=== PATIENT | male | born 1950 | race Caucasian/White ===

== ENCOUNTER 2017-08-02 15:42 | Observation (INO) | payer OTHER, MEDICARE ==
[~2017-08-02] VITALS: Ht 182.9 cm; Wt 106.6 kg
--- NOTE | 2017-08-02 16:22 | ED EYE COMPLAINT ---
History of Present Illness General Chief Complaint: General Adult Stated Complaint: SENT BY FOR MRI POSSIBLE SEIZURE Source: patient Exam Limitations: no limitations Vital Signs & Intake/Output Vital Signs & Intake/Output Vital Signs Date Time Temp Pulse Resp B/P B/P Pulse O2 O2 Flow FiO2 Mean Ox Delivery Rate 08/02 1730 98.1 62 20 120/74 96 Room Air 08/02 1633 98 Room Air 08/02 1601 97.0 60 20 122/81 95 Room Air Allergies Coded Allergies: cephalexin (Severe, SEVERE AMS 08/02/17) povidone-iodine (From BETADINE) (Severe, REQUIRED SKIN GRAFTS AFTER USED DURING SURGERY 08/02/17) soap (From BETADINE) (Severe, REQUIRED SKIN GRAFTS AFTER USED DURING SURGERY ) Triage Note: PT TO TRIAGE FROM DR LEGER'S OFFICE FOR ?MRI OR CT SCAN, STATES THE DOCTOR CALLED AND ADVISED WHICH TEST SHE WANTED. PT HAS HAD "3 WEIRD BLACK OUTS IN THE LAST MONTH". STATES "IT STARTS WITH FEELING LIKE SOMEBODY STUCK AN ICE PICK IN THE TOP OF MY HEAD". STATES EPISODE LASTS 3-5 MINS. ? IF IT'S A NEW FORM OF SEIZURE POSSIBLY BROUGHT ON BY INCREASED STRESSORS. PATIENT HAS RECENTLY RELOCATED TO [place] AND DOES NOT HAVE LOCAL NEUROLOGIST. HAS HX INCLUDING CVA, BLEED R/T PLAVIX X 2 YEARS. HAS CHRONIC/CONSTANT HEAD PAIN WHICH IS USUALLY RELIEVED TO 2/10 WITH ALEVE. Triage Nurses Notes Reviewed? yes Onset: Abrupt Duration: week(s):, gone now, intermittent Timing: recent history Severity: severe HPI: Patient presents for evaluation of transient episodes of visual loss that has happened roughly 3 times over the past month. His primary care physician felt he needed an emergent MRI scan. The patient is asymptomatic at this time. He denies associated palpitations chest pain difficulty speaking or weakness. Patient's past medical history is pertinent for a prior intracranial bleed associated with Plavix use and craniotomy. (Randee [place],Sin Roger) Past History Travel History Traveled to [place] past 21 day No Medical History Any Pertinent Medical History? see below for history Neurological: CVA, MASSIVE BRAIN BLEED FROM PLAVIX SEIZURES EENT: NONE Cardiovascular: aortic aneurysm, hypertension, hyperlipidemia, ATHEROSCLEROSIS Respiratory: NONE Gastrointestinal: NONE Hepatic: NONE Renal: NONE Musculoskeletal: AV MALFORMATION R ANKLE Psychiatric: depression Endocrine: hypothyroidism Blood Disorders: NONE Cancer(s): NONE PARK INTERPRETER/Reproductive: NONE Surgical History Surgical History: CRANIOTOMY Psychosocial History What is your primary language Nepali Tobacco Use: Current Daily Use Daily Tobacco Use Amount/Type: => 5 Cigarettes daily ETOH Use: occasional use Illicit Drug Use: denies illicit drug use Family History Hx Contributory? No (Randee [place],Sin Roger) Review of Systems Review of Systems Constitutional: Reports: no symptoms. Eyes: Reports: no symptoms. Ear: Reports: no symptoms. Nose: Reports: no symptoms. Mouth: Reports: no symptoms. Throat: Reports: no symptoms. Respiratory: Reports: no symptoms. Cardiovascular: Reports: no symptoms. GI: Reports: no symptoms. Genitourinary: Reports: no symptoms. Musculoskeletal: Reports: no symptoms. Skin: Reports: no symptoms. Neurological/Psychological: Reports: see HPI. Hematologic/Endocrine: Reports: no symptoms. Immunologic/Allergic: Reports: no symptoms. All Other Systems: Reviewed and Negative (Randee NJ,Sin Roger) Physical Exam General Appearance: well developed/nourished, no apparent distress, alert, COOPERATIVE General Inspection: SEE BELOW General Inspection: SEE BELOW Physical Exam Comments: Gen.: Well-nourished, well-developed, no acute respiratory distress. Head: Normocephalic, atraumatic. Eyes: Normal inspection bilaterally, PERRLA, EOMI Ears: Normal inspection bilaterally Nose: Normal inspection Throat/mouth : Moist mucosa Neck: Supple, full range of motion, no goiter Heart: Regular rate and rhythm, no murmurs rubs or gallops Lungs: Clear to auscultation bilaterally with normal air entry Chest: Nontender Back: Normal range of motion Abdomen: Soft, nontender, nondistended, normal bowel sounds Extremities: Normal range of motion grossly, equal radial pulses, no cyanosis clubbing or edema, extremity strength normal Neurologic: Cranial nerves 2 through 12 intact, speech is clear, gait is stable Skin: warm and dry Psychiatric: Calm, cooperative, no apparent delusions or hallucinations (Randee NJ,Sin Roger) Progress Differential Diagnosis: tia'S, AMAUROSIS FUGAX, TEMPORAL ARTERITIS, MEDICATION SIDE EFFECT Plan of Care: Orders Procedure Date/time Status PROTHROMBIN TIME 08/02 1913 Complete WESTERGREN SED RATE 08/02 1913 Complete COMPREHENSIVE METABOLIC PANEL 08/02 1913 Complete CBC WITHOUT DIFFERENTIAL 08/02 1913 Complete EKG 08/02 1913 Active Laboratory Tests 08/02/171928: Anion Gap 15, Estimated GFR > 60, BUN/Creatinine Ratio 14.0, Glucose 98, Calcium 9.9, Total Bilirubin 0.3, AST 20, ALT 37, Alkaline Phosphatase 72, Total Protein 7.8, Albumin 4.8, Globulin 3.0, Albumin/Globulin Ratio 1.6, PT 11.2, INR 1.07, CBC w Diff NO MAN DIFF REQ, RBC 4.54 L, MCV 94.7 H, MCH 31.9 H, MCHC 33.7, RDW 14.8 H, MPV 8.0, Gran % 51.0, Lymphocytes % 35.1, Monocytes % 8.5, Eosinophils % 4.8, Basophils % 0.6, Absolute Granulocytes 4.7, Absolute Lymphocytes 3.3, Absolute Monocytes 0.8 H, Absolute Eosinophils 0.5, Absolute Basophils 0.1, ESR Westergren 20 H Diagnostic Imaging: Discussed w/RAD: CT Scan. Radiology Impression: PATIENT: RAMON SARABIA PRESENT AGE: 67 PATIENT ACCOUNT NO: [id number] : 51 LOCATION: [facility] ORDERING PHYSICIAN: Sin Jeff MD SERVICE DATE: 08/02/17 EXAM TYPE: CAT - CT HEAD WO IV CONTRAST EXAMINATION: CT HEAD WITHOUT CONTRAST CLINICAL INFORMATION: Intermittent loss of vision. Assess for CVA. COMPARISON: None. TECHNIQUE: Contiguous axial imaging was performed from the skull base to vertex without intravenous administration of contrast. DLP: 616.06 mGy-cm FINDINGS: There are sequelae of a right temporal cranioplasty with a synthetic right parietal graft with anchoring screws. No underlying fluid collection is demonstrated. There is no evidence of acute intracranial hemorrhage or territorial infarction. No abnormal mass effect or midline shift is seen. Freeman to white matter differentiation is well preserved. No extra-axial fluid collections are identified. The ventricles are normal in size. There are small lacunar infarcts in the posterior right centrum semiovale, in the right basal ganglia, in the left nellie and right caudate head. A 1.3 cm area of low attenuation in the inferior right basal ganglia may be consistent with a perivascular space or lacunar infarct. There is a small calcification in a sulcus in the region of the right cingulate gyrus. The mastoid air cells are well-aerated. There are degenerative changes of the left greater than right temporomandibular joints. The nasal septum is deviated to the left. IMPRESSION: 1. There are no acute bleeds or territorial infarcts. 2. There are multiple lacunar infarcts. A small area of more acute ischemia cannot be excluded on the basis of this study. 2. There are sequelae of a right parietal cranioplasty. DICTATED BY: Farhad Shay MD DATE/TIME DICTATED:08/02/171758 TIMBER INCISOR OPERATOR :SANGITA DATE/TIME TRANSCRIBED:08/02/171758 CONFIDENTIAL, DO NOT COPY WITHOUT APPROPRIATE AUTHORIZATION. <Electronically signed in Other Vendor System> SIGNED BY: Farhad Shay MD 08/02/171810 Initial ED EKG: NSR, rate (67) Comments: 08/02/2017 7:54:46 PM patient's case discussed with Dr. Pérez who feels it prudent to hospitalize this patient given the substantial debility of a completed stroke (blindness). Patient's case discussed with the hospitalist. (Randee [place],Sin Roger) Radiology Impression: PATIENT: RAMON SARABIA PRESENT AGE: 67 PATIENT ACCOUNT NO: [id number] : 51 LOCATION: [facility] ORDERING PHYSICIAN: Sin Jeff MD SERVICE DATE: 08/02/17 EXAM TYPE: CAT - CT HEAD ANGIOGRAM; CT NECK ANGIOGRAM EXAMINATION: CT ANGIOGRAM HEAD CT ANGIOGRAM NECK CLINICAL INFORMATION: Intermittent transient visual loss. Evaluate vascular disease. COMPARISON: Noncontrast head CT from 08/02/2017. TECHNIQUE: Test bolus sequences followed by intravenous administration 95 mL of Optiray 350 intravenous contrast. Helical imaging was performed in the axial plane from the mediastinum to the skull vertex. Delayed postcontrast imaging of the head was also performed. The data was processed at the medical office technologist's workstation for generation of MIP sequences. Three-dimensional volume rendered reformatted images were also generated at an offline 3-D workstation. Note that any estimates of vascular stenosis are based on criteria similar to NASCET. DLP: 1138 mGy-cm. FINDINGS: HEAD: No extraaxial fluid collection, intracranial mass, intercerebral edema, hemorrhage or midline shift. The ventricles and sulci are normal in size and configuration. The paranasal sinuses are well-aerated and without air fluid levels. Again noted are the surgical changes from a right parietal cranioplasty. There are old lacunar infarcts of the posterior right centrum semiovale, right caudate head and right basal ganglia. A prominent perivascular space is noted inferior to the right lentiform nucleus. SOFT TISSUES AND LUNG APICES: Mild paraseptal emphysema of the medial left apex. Small, 0.3 cm noncalcified, solid nodule within the left upper lobe NECK CTA: Moderate atherosclerosis of the aortic arch. The aortic arch has a classic configuration. The proximal right CCA is partially obscured by streak artifact from high density contrast material in the right subclavian vein but there is no visible right CCA stenosis. Atherosclerotic plaque of the right carotid bulb without significant vessel stenosis. The right cervical ICA is widely patent. Atherosclerotic plaque produces approximately 80% stenosis of the origin of the left CCA and, further distally, calcified plaque produces mild luminal narrowing of the CCA. The left ICA and ECA are widely patent. The right vertebral artery is widely patent. The atherosclerotic plaque at the origin of the left vertebral artery produces approximately 40% stenosis. CRANIAL CTA: There is normal opacification of the major intracranial vessels. The petrous, cavernous and supraclinoid segments of the ICAs are widely patent. There is mild atherosclerotic plaque of the cavernous ICA, bilaterally. The intradural segments of the vertebral arteries and basilar artery are widely patent. No acute proximal large vessel occlusion, focal flow-limiting stenosis, or saccular intracranial aneurysm is identified. No abnormal parenchymal enhancement or regional oligemia is visualized. IMPRESSION: 1. No acute intracranial pathology. Specifically, no evidence of intracranial hemorrhage or acute infarction. 2. Atherosclerotic disease of the visualized thoracic aorta and branch vessels. There is approximately 80% stenosis at the origin of the left CCA; however, the remainder of the left CCA and ICA are widely patent. No significant luminal narrowing of the right CCA or right ICA. There is mild stenosis at the origin of the left vertebral artery. The right vertebral artery is widely patent. 3. Small , 0.3 cm noncalcified nodule within the visualized left upper lobe is of uncertain chronicity given absence of comparison exams. Based on updated guidelines from the Fleischner Society for nodules of this size, routine CT follow-up is not required in a low-risk patient and is considered optional at 12 months in a high risk patient. DICTATED BY: Ji Elkins MD DATE/TIME DICTATED:08/02/172153 TIMBER INCISOR OPERATOR:SANGITA DATE/TIME TRANSCRIBED:2153 CONFIDENTIAL, DO NOT COPY WITHOUT APPROPRIATE AUTHORIZATION. < Electronically signed in Other Vendor System> SIGNED BY: Ji Elkins MD 08/02/17 0601 (Lenny Pelayo MD) Departure Departure Disposition: STILL A PATIENT Condition: Stable Clinical Impression Primary Impression: TIA (transient ischemic attack) Qualifiers: Transient cerebral ischemia type: amaurosis fugax Qualified Code: G45.3 - Amaurosis fugax Referrals: Africa Leger MD (PCP/Family) Departure Forms: Customer Survey General Discharge Information Observation Note Spoke With: Ez Tompkins MD Place Patient In: Non-ED OBS Care Area Rationale for Observation: My rational for observation is as follows patient presents with multiple episodes of intermittent total visual loss consistent with TIAs. This patient now requires an expedited evaluation of reversible causes of TIA including cardioembolic phenomenon and carotid stenosis. I do not feel he is a good candidate for outpatient management as his acute visual loss could place him at risk of fall with injury. He is also at risk of a completed stroke with a severely debilitating loss of vision. In addition to echocardiogram, patient should have a neurology consultation and optimization of medical management of risk factors for stroke. Patient should also be placed on continuous cardiac monitoring for the possibility of intermittent atrial fibrillation or other dysrhythmia. OR/GI Note ED Treatment Decision: RAMON SARABIA requires urgent operative management or an emergent procedure that cannot be performed in the Emergency Room setting. (Sin Jeff MD) Departure Comments 08/02/17, 22:21... head/neck angio negative for acute clot... pt stable for tele observation. Observation Note Physician Advisor Notified: SIN OROZCO DO Rationale for Observation: My rational for observation is as follows . (Lenny Pelayo MD)
--- NOTE | 2017-08-02 18:11 | CT SCAN REPORT ---
EXAMINATION: CT HEAD WITHOUT CONTRAST CLINICAL INFORMATION: Intermittent loss of vision. Assess for CVA. COMPARISON: None. TECHNIQUE: Contiguous axial imaging was performed from the skull base to vertex without intravenous administration of contrast. DLP: 616.06 mGy-cm FINDINGS: There are sequelae of a right temporal cranioplasty with a synthetic right parietal graft with anchoring screws. No underlying fluid collection is demonstrated. There is no evidence of acute intracranial hemorrhage or territorial infarction. No abnormal mass effect or midline shift is seen. Freeman to white matter differentiation is well preserved. No extra-axial fluid collections are identified. The ventricles are normal in size. There are small lacunar infarcts in the posterior right centrum semiovale, in the right basal ganglia, in the left nellie and right caudate head. A 1.3 cm area of low attenuation in the inferior right basal ganglia may be consistent with a perivascular space or lacunar infarct. There is a small calcification in a sulcus in the region of the right cingulate gyrus. The mastoid air cells are well-aerated. There are degenerative changes of the left greater than right temporomandibular joints. The nasal septum is deviated to the left. IMPRESSION: 1. There are no acute bleeds or territorial infarcts. 2. There are multiple lacunar infarcts. A small area of more acute ischemia cannot be excluded on the basis of this study. 2. There are sequelae of a right parietal cranioplasty.
[2017-08-02 19:51] LABS: ABSOLUTE BASOPHIL COUNT 0.1 /CUMM (0.0-0.2); ABSOLUTE EOSINOPHIL COUNT 0.5 /CUMM (0.0-0.7); ABSOLUTE GRANULOCYTE CT 4.7 /CUMM (1.4-6.5); ABSOLUTE LYMPH COUNT 3.3 /CUMM (1.2-3.4); ABSOLUTE MONOCYTE COUNT 0.8 /CUMM (0.10-0.60); BASOPHIL % 0.6 % (0.0-2.0); EOSINOPHIL % 4.8 % (0-5); MEAN CORPUSCULAR HGB 31.9 PG (27.0-31.0); MEAN CORPUSCULAR HGB CONC 33.7 G/DL (33.0-37.0); MEAN CORPUSCULAR VOLUME 94.7 FL (80.0-94.0); PLATELET COUNT 248 /CUMM (130-400); RBC DISTRIBUTION WIDTH 14.8 % (11.5-14.5); RED BLOOD CELL CT 4.54 /CUMM (4.70-6.10); WHITE BLOOD CELL COUNT 9.3 /CUMM (4.8-10.8)
[2017-08-02 19:57] LABS: PT 11.2 SEC (9.4-12.5)
--- NOTE | 2017-08-02 20:34 | History & Physical ---
Jamison Moore 08/02/172032: General Information and HPI History of Present Illness: Mr. 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 Patient reports in the last month he has had 3 "blackouts" that are precipitated by stress. His symptoms begin with a sharp stabbing "ice pick" feeling headache at the top of his head that lasts for 3-5 minutes and subsequently he temporarily loses his vision for 3-5 secs. His current symptoms came about after arguing with [id number]. Prior to today his last episode was 07/04/17 which was precipitated after his [id number] . He also reports a chronic headache self treated with naproxen with minimal relief. His last seizure was 6 months ago. During his seizures he usually exhibit L jerky movements. Patient reports his first seizure was due to an intracranial hemorrhage caused by Plavix. He also reports frequent falls that began after the craniotomy and uses a cane for assistance. He recently moved from [facility] where all his care was being managed to [place] in April 2017 after snf. He denies jerky movements, LOC, tongue bite, dysphagia, lightheadedness, tinnitus, palpitations, paresthesias, fever, chills, nausea, vomiting, urinary or bowel symptoms. Allergies/Medications Allergies: Coded Allergies: cephalexin (Severe, SEVERE AMS 08/02/17) povidone-iodine (From BETADINE) (Severe, REQUIRED SKIN GRAFTS AFTER USED DURING SURGERY 08/02/17) soap (From BETADINE) (Severe, REQUIRED SKIN GRAFTS AFTER USED DURING SURGERY ) Past History Travel History Traveled to [place] past 21 day No Medical History Neurological: CVA, MASSIVE BRAIN BLEED FROM PLAVIX SEIZURES EENT: NONE Cardiovascular: aortic aneurysm, hypertension, hyperlipidemia, ATHEROSCLEROSIS Respiratory: NONE Gastrointestinal: NONE Hepatic: NONE Renal: NONE Musculoskeletal: AV MALFORMATION R ANKLE Psychiatric: depression Endocrine: hypothyroidism Blood Disorders: NONE Cancer(s): NONE 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 Exam & Diagnostic Data Last 24 Hrs of Vital Signs/I&O Vital Signs Date Time Temp Pulse Resp B/P B/P Pulse O2 O2 Flow FiO2 Mean Ox Delivery Rate 08/03 0028 97.8 56 18 148/76 97 Room Air 08/02 2248 97.7 58 18 131/71 08/02 2246 97.7 58 18 131/71 99 Room Air 08/02 1730 98.1 62 20 120/74 96 Room Air 08/02 1633 98 Room Air 08/02 1601 97.0 60 20 122/81 95 Room Air Intake & Output 08/03 0800 08/03 0000 08/02 1600 Intake Total 0 Output Total Balance 0 Intake, Oral 0 Patient 235 lb Weight Weight Reported by Patient Measurement Method Physical Exam General Appearance Alert, Oriented X3, Cooperative, No Acute Distress HEENT Atraumatic, PERRLA, EOMI, L residual facial droop Neck Supple, No JVD, No thryomegaly Cardiovascular Regular Rate, Normal S1, Normal S2 Lungs Clear to Auscultation, Normal Air Movement Abdomen LLQ surgical scar Neurological RUE, RLE 5/5 strength, LUE 4/5 strength with loss of coordination and fine motor control. LLE 3/5 strength. Sensation diminished on L-side Extremities No Edema Last 24 Hrs of Labs/Moisés: Laboratory Tests 08/02/171928: Anion Gap 15, Estimated GFR > 60, BUN/Creatinine Ratio 14.0, Glucose 98, Calcium 9.9, Total Bilirubin 0.3, AST 20, ALT 37, Alkaline Phosphatase 72, Total Protein 7.8, Albumin 4.8, Globulin 3.0, Albumin/Globulin Ratio 1.6, PT 11.2, INR 1.07, CBC w Diff NO MAN DIFF REQ, RBC 4.54 L, MCV 94.7 H, MCH 31.9 H, MCHC 33.7, RDW 14.8 H, MPV 8.0, Gran % 51.0, Lymphocytes % 35.1, Monocytes % 8.5, Eosinophils % 4.8, Basophils % 0.6, Absolute Granulocytes 4.7, Absolute Lymphocytes 3.3, Absolute Monocytes 0.8 H, Absolute Eosinophils 0.5, Absolute Basophils 0.1, ESR Westergren 20 H Diagnostic Data Other Results 08/02/17 CT HEAD ANGIOGRAM; CT NECK ANGIOGRAM IMPRESSION: 1. No acute intracranial pathology. Specifically, no evidence of intracranial hemorrhage or acute infarction. 2. Atherosclerotic disease of the visualized thoracic aorta and branch vessels. There is approximately 80% stenosis at the origin of the left CCA; however, the remainder of the left CCA and ICA are widely patent. No significant luminal narrowing of the right CCA or right ICA. There is mild stenosis at the origin of the left vertebral artery. The right vertebral artery is widely patent. 3. Small, 0.3 cm noncalcified nodule within the visualized left upper lobe is of uncertain chronicity given absence of comparison exams. Based on updated guidelines from the Fleischner Society for nodules of this size, routine CT follow-up is not required in a low-risk patient and is considered optional at 12 months in a high risk patient. 08/02/17 CT HEAD WO IV CONTRAST IMPRESSION: 1. There are no acute bleeds or territorial infarcts. 2. There are multiple lacunar infarcts. A small area of more acute ischemia cannot be excluded on the basis of this study. 2. There are sequelae of a right parietal cranioplasty. Assessment/Plan Assessment: Mr. Mcdonald is a 67-year-old male with an extensive history who presents with loss of vision admitted to telemetry for further evaluation TIA vs Stroke vs Seizure * Admit to telemtry for further evaluation and monitoring * Neurochecks * Serial TROP/ECG to r/o ACS * EEG to r/o seizure * ECHO to r/o SHD or valvular abnormalities * Fall precautions * Obtain records from Dr. Debbie Zimmerman-Neurologist * Continue home medications * Cardiology consult in a.m. * Neurology consult * Vascular consult * MRI in a.m. if aortic stents MRI campatible Diet: Heart healthy DVT ppx: ALPS Code: DNR/DNI As Ranked By This Provider Problem List: 1. TIA (transient ischemic attack) Qualifiers Transient cerebral ischemia type: amaurosis fugax Qualified Code: G45.3 - Amaurosis fugax Core Measures/Misc (03/24) Acute Coronary Syndrome ACS Diagnosis: No Congestive Heart Failure Congestive Heart Failure Diagnosis No Cerebrovascular Accident CVA/TIA Diagnosis: No VTE (View Protocol) VTE Risk Factors Age>40 No Mechanical VTE Prophylaxis d/t N/A MechProphylax Ordered No VTE Pharm Prophylaxis d/t NA PharmProphylax ordered Sepsis (View protocol) Sepsis Present: No Austin Roberson MD 08/02/17 9282: General Information and HPI Allergies/Medications Home Med list Amlodipine Besylate 10 MG TABLET 1 TAB PO DAILY HEART/BP (Reported) Aspirin (Ecotrin*) 81 MG TABLET.DR 1 TAB PO DAILY HEART/BLOOD (Reported) Atorvastatin Calcium (Lipitor) 20 MG TABLET 1 TAB PO DAILY CHOLESTEROL ( Reported) Levothyroxine Sodium 100 MCG TABLET 1 TAB PO DAILY THYROID (Reported) Lisinopril 10 MG TABLET 1 TAB PO DAILY BP (Reported) Nitroglycerin 0.4 MG TAB.SUBL 1 TAB SL AD PRN CHEST PAIN (Reported) 1st sign of attack; may repeat every 5 minutes until relief; if pain persists after 3 tablets in 15 minutes, prompt medical att Pantoprazole Sodium 40 MG TABLET.DR 1 TAB PO DAILY GI (Reported) Propranolol HCl 10 MG TABLET 1 TAB PO BID BP (Reported) Topiramate (Topamax) 100 MG TABLET 1.5 TAB PO BID SEIZURES (Reported) Venlafaxine HCl (Venlafaxine HCl ER) 150 MG CAP.ER.24H 1 CAP PO DAILY MENTAL HEALTH (Reported) Resident Review Statement Resident Statement: examined this patient, discussed with financial services internship, agreed with financial services internship, reviewed EMR data (avail), discussed with nursing, discussed with case mgmt, reviewed images, amended to note Other Findings: 67 yo M with pmh of AAA, s/p b/l iliac artery stents, hemorrhagic CVA while on Plavix (after the vascular procedure), seizure, first CVA without residual deficit, second CVA during craniotomy with left sided decreased sensation and upper and lower limbs' loss of coordination, HTN, HLD, DM, hypothyroidism, depression, was referred to the emergency/MRI from his PCP after he complained of repeated "blackout episodes", the latest being earlier today. Patient told that during times of stress, he commonly has headaches, but sometimes he does get very sharp severe pain over the top of his head for 3-5 min, and has a "blackout episode"-- described by him as a short period of time usually 3-5 seconds where everything goes dark, but he is aware of the timing, and surroundings at that time. He denies any other symptoms like visual disturbances, auditory sensations, olfactory changes, nausea, before and after the episodes. The last episode was earlier today and one before that was on Jul 03, 2017. He only had one another (total three) episodes so far. Of note he mentioned that the days he does not take his antiseizure medication, he gets one seizure. He is recently resettled from [facility], and this does not have a neurologist in this area. He established care with PCP Dr. Rondon, who, upon hearing recent story, referred her to the [place]'s emergency department to get an MRI and further evaluation. In the ED, patient presented with normal vitals, his examination finding is significant for left-sided weakness both face and limbs, some chronic changes and contracture on his left hand/arm, position sense/proprioception disturbance on his left upper extremity and less on left lower extremity, increased deep tendon reflex on left side compared to right. Rest of his examination appeared normal, including his vision. Labs were normal, and a CT angiogram of the head did so multiple lacunar infarcts, a small area of more acute ischemia could not be excluded only with this study. Evidence of prior right parietal cranioplasty noted. Patient is currently being observed in telemetry floor for the management of following issues: #Possible partial seizure, 2/2 craniotomy, and to r/o acute infraction Patient's description of the clinical symptoms resembles seizures well. We need to rule out stroke as well, although the initial CT of head only lacunar infracts. Acute ischemia could not be excluded on the basis of this study. MRI if complatible with his stents. Echo to r/o structural or functional abnormalities. Cardio consult. Neuro consult. Vascular consult, Will r/o ACS with serial trop and EKG, Neurochecks, fall precautions. PT/OT eval. #Home meds continued. #diet: Heart Healthy diet #DVT ppx: ALPS #Code status: DNR/DNI Patient's vascular surgeon near [place] who put his ileofemoral stent. This info might be important in finding out if the stents are MRI compatible. Dr. Debbie Zimmerman Vascular Surgeon who put the b/l iliac artery stent MRI compatible LAURA Lyon MD, [facility] 08/03/17 0603: Attending MD Review Statement Attending Statement Attending MD Statement: examined this patient, discuss w/resident/PA/BAKER PIE, agreed w/resident/PA/BAKER PIE, reviewed images, amended to note Attending Assessment/Plan: 67 yo M smoker with h/o AAA s/p repair, was on plavix that resulted in intracranial bleed/ hemorrhagic stroke requiring craniotomy complicated by seizure disorder and resultant left sided deficits, PAD s/p bilateral iliac stents, HTN, is here for evaluation of episodes of 'blackouts' complete transient visual loss. Patient has had 3 episodes in the past 1 month, mostly precipitated by stress, starts off as a midline sharp headache followed by complete blackout in the eyes (visual loss) -total episode lasting 3-5 mintues, with complete resolution thereafter. No lightheadedness, dizziness, confusion or LOC. Most recent episode was on day of admission. He has an extensive vascular history and he was living in [facility], recently moved to [place] in Apr 2017. He was establishing primary care with Dr. Madrid yesterday who asked him to come to ER for evaluation. He only c/o palpitations, but denies chest pain or dyspnea. He feels well now. His last seizure episode was 6 months back. Vitals stable. Neuro exam: Visual reveles intact, no nystagmus, no vision loss. Speech clear. left facial droop and left hand contracture/ left sided weakness is residual from previous stroke/ bleed. Cranial nerves intact, no pronator drift. Sensation intact, plantars neg, hyperreflexia on left side. Labs unremarkable. Head CT: no acute bleed or infarct, multiple lacunar infarcts, sequelae of right parietal cranioplasty. CTA head/neck: no acute pathology. Atherosclerotic disease, approx 80% stenosis at origin of left CCA, otherwise patent. Mild stenosis at origin of left vertebral artery. Small left upper lobe nodule. EKG: Sinus rhythm with inferior T-waves (no old EKG) Assessment and plan: 1. Intermittent 'blackouts' vision loss 2. Rule out TIA or stroke 3. History of seizure, unclear if this event is a partial seizure 4. H/o intracranial bleed, stroke s/p craniotomy 5. Essential hypertension - 23 hour observation on Telemetry - Neurochecks Q2 - Monitor for arrhythmias - Fall precautions - MRI brain in AM we need to confirm if his iliac stents are MRI compatible. Patient states they are compatible. Patient's vascular surgeon at [facility] was Dr. Debbie Zimmerman for contact. - Obtain echo, rule out ACS - Obtain Neuro and Cardio consult - continue aspirin and high dose statin - No need for carotid doppler since CTA was done - Obtain Vascular consult - Passed bedside swallow eval - PT/OT therapy - Check lipid panel, TSH, free T4, HbA1c - Smoking cessation counseling, nicotine patch - Obtain EEG - Resume topiramate, effexor, propranolol, synthroid, lisinopril, amlodipine and PPI. DVT ppx Lovenox. DNR/I. Observation Initial Note - I have personally examined DINHMIKORAMON on 08/03/17 at 0603. The disposition of CORNELLRAMON is uncertain at this time and before a determination can be made, he requires a period of observation for the following reasons [TIA/stroke]
--- NOTE | 2017-08-02 22:15 | CT SCAN REPORT ---
EXAMINATION: CT ANGIOGRAM HEAD CT ANGIOGRAM NECK CLINICAL INFORMATION: Intermittent transient visual loss. Evaluate vascular disease. COMPARISON: Noncontrast head CT from 08/02/2017. TECHNIQUE: Test bolus sequences followed by intravenous administration 95 mL of Optiray 350 intravenous contrast. Helical imaging was performed in the axial plane from the mediastinum to the skull vertex. Delayed postcontrast imaging of the head was also performed. The data was processed at the electronic technologist's workstation for generation of MIP sequences. Three-dimensional volume rendered reformatted images were also generated at an offline 3-D workstation. Note that any estimates of vascular stenosis are based on criteria similar to NASCET. DLP: 1138 mGy-cm. FINDINGS: HEAD: No extraaxial fluid collection, intracranial mass, intercerebral edema, hemorrhage or midline shift. The ventricles and sulci are normal in size and configuration. The paranasal sinuses are well-aerated and without air fluid levels. Again noted are the surgical changes from a right parietal cranioplasty. There are old lacunar infarcts of the posterior right centrum semiovale, right caudate head and right basal ganglia. A prominent perivascular space is noted inferior to the right lentiform nucleus. SOFT TISSUES AND LUNG APICES: Mild paraseptal emphysema of the medial left apex. Small, 0.3 cm noncalcified, solid nodule within the left upper lobe NECK CTA: Moderate atherosclerosis of the aortic arch. The aortic arch has a classic configuration. The proximal right CCA is partially obscured by streak artifact from high density contrast material in the right subclavian vein but there is no visible right CCA stenosis. Atherosclerotic plaque of the right carotid bulb without significant vessel stenosis. The right cervical ICA is widely patent. Atherosclerotic plaque produces approximately 80% stenosis of the origin of the left CCA and, further distally, calcified plaque produces mild luminal narrowing of the CCA. The left ICA and ECA are widely patent. The right vertebral artery is widely patent. The atherosclerotic plaque at the origin of the left vertebral artery produces approximately 40% stenosis. CRANIAL CTA: There is normal opacification of the major intracranial vessels. The petrous, cavernous and supraclinoid segments of the ICAs are widely patent. There is mild atherosclerotic plaque of the cavernous ICA, bilaterally. The intradural segments of the vertebral arteries and basilar artery are widely patent. No acute proximal large vessel occlusion, focal flow-limiting stenosis, or saccular intracranial aneurysm is identified. No abnormal parenchymal enhancement or regional oligemia is visualized. IMPRESSION: 1. No acute intracranial pathology. Specifically, no evidence of intracranial hemorrhage or acute infarction. 2. Atherosclerotic disease of the visualized thoracic aorta and branch vessels. There is approximately 80% stenosis at the origin of the left CCA; however, the remainder of the left CCA and ICA are widely patent. No significant luminal narrowing of the right CCA or right ICA. There is mild stenosis at the origin of the left vertebral artery. The right vertebral artery is widely patent. 3. Small, 0.3 cm noncalcified nodule within the visualized left upper lobe is of uncertain chronicity given absence of comparison exams. Based on updated guidelines from the Fleischner Society for nodules of this size, routine CT follow-up is not required in a low-risk patient and is considered optional at 12 months in a high risk patient.
[2017-08-02] MEDS ORDERED: ASPIRIN EC81 M1 PO (22:41)
[2017-08-02] MEDS ORDERED: LIPITOR20 M2 PO (22:41)
[2017-08-02] MEDS ORDERED: AMLODIPINE BESY10 M1 PO (22:41)
[2017-08-02] MEDS ORDERED: PROPRANOLOL HCL10 M1 PO (22:43)
[2017-08-02] MEDS ORDERED: LEVOTHYROXINE100 MC1 PO (22:43)
[2017-08-02] MEDS ORDERED: PANTOPRAZOLE SO40 M1 PO (22:43)
[2017-08-02] MEDS ORDERED: LISINOPRIL10 M1 PO (22:43)
[2017-08-02] MEDS ORDERED: TOPAMAX100 M1 PO (22:44)
[2017-08-02] MEDS ORDERED: VENLAFAXINE HC150 MG PO (22:44)
[2017-08-02] MEDS ORDERED: NITROGLYCERIN0.4 M1 SL (22:45)
[2017-08-03 00:28] VITALS: BP 148/76
[2017-08-03 06:44] VITALS: BP 116/72
[2017-08-03 08:26] LABS: ABSOLUTE BASOPHIL COUNT 0 /CUMM (0.0-0.2); ABSOLUTE EOSINOPHIL COUNT 0.3 /CUMM (0.0-0.7); ABSOLUTE GRANULOCYTE CT 3.6 /CUMM (1.4-6.5); ABSOLUTE LYMPH COUNT 2.5 /CUMM (1.2-3.4); ABSOLUTE MONOCYTE COUNT 0.6 /CUMM (0.10-0.60); BASOPHIL % 0.6 % (0.0-2.0); EOSINOPHIL % 4.8 % (0-5); GRANULOCYTE % 50.3 % (42.2-75.2); HEMATOCRIT 39.5 % (42-52); MEAN CORPUSCULAR HGB 31.9 PG (27.0-31.0); MEAN CORPUSCULAR HGB CONC 33.6 G/DL (33.0-37.0); MEAN CORPUSCULAR VOLUME 94.7 FL (80.0-94.0); MEAN PLATELET VOLUME 8.5 FL (7.4-10.4); PLATELET COUNT 210 /CUMM (130-400); RBC DISTRIBUTION WIDTH 14.7 % (11.5-14.5); RED BLOOD CELL CT 4.17 /CUMM (4.70-6.10); WHITE BLOOD CELL COUNT 7.2 /CUMM (4.8-10.8)
--- NOTE | 2017-08-03 09:17 | Cons- Vascular Surgery ---
General Information and HPI Consulting Request Date of Consult: 08/03/17 Requested By: Turner [place],Ez Reason for Consult: TIA vs. Stroke vs. Seizure Source of Information: patient, old records Exam Limitations: limited medical records d/t pt relocation from [place] History of Present Illness: Patient is a 67-year-old male, current smoker of greater than 50 pack years, who recently relocated from [place] to [place] after nursing home. 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 There were initially no neurologic deficits. He underwent craniotomy (2014) and suffered a second CVA which resulted in residual left- sided weakness. He had no major issues for at least a couple of years. Since moving to [place], he has been under a lot of stress and reports 3 "blackouts," all of which have been precipitated by stressful events ( of mother in law, argument with brother in law, etc). He recalls all of these events and states that they lasted about 3-5 minutes each. The last episode was yesterday and then previously on 07/04/2017. He has been attempting to initiate care with local doctors and first saw a new PCP yesterday. Based on reports of these symptoms, he was sent to the emergency room immediately for workup. At this time, patient has no major complaints. He feels that he is at baseline with regard to his weakness. He does admit that he is very sensitive to changes in his antiseizure medicine, with seizures guaranteed to occur after missing a dose. At this time, he denies headache, dizziness, chest pain, shortness of breath. Of note, patient's vascular surgeon from [place] was Dr. Debbie Zimmerman in [place], [place]. Allergies/Medications Allergies: Coded Allergies: cephalexin (Severe, SEVERE AMS 08/02/17) povidone-iodine (From BETADINE) (Severe, REQUIRED SKIN GRAFTS AFTER USED DURING SURGERY 08/02/17) soap (From BETADINE) (Severe, REQUIRED SKIN GRAFTS AFTER USED DURING SURGERY ) Home Med List: Amlodipine Besylate 10 MG TABLET 1 TAB PO DAILY HEART/BP (Reported) Aspirin (Ecotrin*) 81 MG TABLET.DR 1 TAB PO DAILY HEART/BLOOD (Reported) Atorvastatin Calcium (Lipitor) 20 MG TABLET 1 TAB PO DAILY CHOLESTEROL ( Reported) Levothyroxine Sodium 100 MCG TABLET 1 TAB PO DAILY THYROID (Reported) Lisinopril 10 MG TABLET 1 TAB PO DAILY BP (Reported) Nitroglycerin 0.4 MG TAB.SUBL 1 TAB SL AD PRN CHEST PAIN (Reported) 1st sign of attack; may repeat every 5 minutes until relief; if pain persists after 3 tablets in 15 minutes, prompt medical att Pantoprazole Sodium 40 MG TABLET.DR 1 TAB PO DAILY GI (Reported) Propranolol HCl 10 MG TABLET 1 TAB PO BID BP (Reported) Topiramate (Topamax) 100 MG TABLET 1.5 TAB PO BID SEIZURES (Reported) Venlafaxine HCl (Venlafaxine HCl ER) 150 MG CAP.ER.24H 1 CAP PO DAILY MENTAL HEALTH (Reported) Past History Medical History Blood Transfusion Hx: Yes Neurological: CVA, 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 Home Who Do You Live With? spouse Smoking Status: Current Everyday Smoker ETOH Use: occasional use Illicit Drug Use: denies illicit drug use Employment History Employment: Retired Review of Systems Review of Systems: Positive for a known left-sided weakness after CVA in 2014. Also positive for recent blackouts. Negative for headache, dizziness, visual disturbances, speech impairments, chest pain, palpitations, shortness of breath, difficulty breathing, nausea, vomiting, abdominal pain, new areas of weakness. Exam & Diagnostic Data Vital Signs and I&O Vital Signs Date Time Temp Pulse Resp B/P B/P Pulse O2 O2 Flow FiO2 Mean Ox Delivery Rate 08/03 0644 98.1 58 18 116/72 97 Room Air 08/03 0028 97.8 56 18 148/76 97 Room Air 08/02 2248 97.7 58 18 131/71 08/026 97.7 58 18 131/71 99 Room Air 08/02 1730 98.1 62 20 120/74 96 Room Air 08/02 1633 98 Room Air 08/02 1601 97.0 60 20 122/81 95 Room Air Intake & Output 08/03 1600 08/03 0800 08/03 0000 08/02 1600 08/02 0800 08/02 0000 Intake Total 110 0 Output Total Balance 110 0 Intake, IV 10 Intake, Oral 100 0 Patient 235 lb Weight Weight Reported by Patient Measurement Method Physical Exam: Gen.: Patient is awake and alert. He is in no acute distress and speech is clear. HEENT: Pupils are equal round and reactive to light and accommodation. EOMs are intact. There is a mild left facial droop, with questionable left-sided tongue deviation, although this is not reproducible consistently. There is a old, well -healed vertical left-sided neck scar. Carotid pulses are 2+. No carotid bruits are appreciated. Cardiac: Regular rate. No murmurs are appreciated. Lungs: Clear to auscultation bilaterally. Extremities: Right sided upper and lower extremity strength are intact, 5 out of 5 throughout the right side. There is notable left-sided weakness, strength is 3 out of 5, as patient is able to resist gravity only. Finger to nose is impaired and movements are jerky. Upper and lower extremity sensation are intact and no lower extremity edema is appreciated. DP and PT pulses are 2+ bilaterally. Last 24 Hours of Labs: Laboratory Tests 08/03 08/02 0620 1929 Chemistry Sodium (137 - 145 mmol/L) 143 147 H Potassium (3.5 - 5.1 mmol/L) 4.0 4.6 Chloride (98 - 107 mmol/L) 111 H 109 H Carbon Dioxide (22 - 30 mmol/L) 21 L 23 Anion Gap (5 - 16) 10 15 BUN (9 - 20 mg/dL) 14 14 Creatinine (0.7 - 1.2 mg/dL) 0.9 1.0 Estimated GFR (>60 ml/min) > 60 > 60 BUN/Creatinine Ratio (7 - 25 %) 15.6 14.0 Glucose (65 - 99 mg/dL) 98 Hemoglobin A1c (4.2 - 5.8 %) Pending Calcium (8.4 - 10.2 mg/dL) 9.9 Total Bilirubin (0.2 - 1.3 mg/dL) 0.3 AST (17 - 59 U/L) 20 ALT (21 - 72 U/L) 37 Alkaline Phosphatase (< 127 U/L) 72 Troponin I (<0.11 ng/ml) < 0.01 Total Protein (6.3 - 8.2 g/dL) 7.8 Albumin (3.5 - 5.0 g/dL) 4.8 Globulin (1.9 - 4.2 gm/dL) 3.0 Albumin/Globulin Ratio (1.1 - 2.2 %) 1.6 Triglycerides (<150 mg/dL) 149 Cholesterol (< 200 MG/DL) 172 LDL Cholesterol, Calc (65 - 129 mg/dL) 79 HDL Cholesterol (40 - 60 mg/dL) 64 H Cholesterol/HDL Ratio (0.00 - 4.88 %) 3 TSH (0.270 - 4.200 uIU/mL) Pending Free T4 (0.78 - 2.44 ng/dL) Pending Coagulation PT (9.4 - 12.5 SEC) 11.2 INR (0.90 - 1.17) 1.07 Hematology CBC w Diff NO MAN DIFF REQ NO MAN DIFF REQ WBC (4.8 - 10.8 /CUMM) 7.2 9.3 RBC (4.70 - 6.10 /CUMM) 4.17 L 4.54 L Hgb (14.0 - 18.0 G/DL) 13.3 L 14.5 Hct (42 - 52 %) 39.5 L 43.0 MCV (80.0 - 94.0 FL) 94.7 H 94.7 H MCH (27.0 - 31.0 PG) 31.9 H 31.9 H MCHC (33.0 - 37.0 G/DL) 33.6 33.7 RDW (11.5 - 14.5 %) 14.7 H 14.8 H Plt Count (130 - 400 /CUMM) 210 248 MPV (7.4 - 10.4 FL) 8.5 8.0 Gran % (42.2 - 75.2 %) 50.3 51.0 Lymphocytes % (20.5 - 51.1 %) 35.3 35.1 Monocytes % (1.7 - 9.3 %) 9.0 8.5 Eosinophils % (0 - 5 %) 4.8 4.8 Basophils % (0.0 - 2.0 %) 0.6 0.6 Absolute Granulocytes (1.4 - 6.5 /CUMM) 3.6 4.7 Absolute Lymphocytes (1.2 - 3.4 /CUMM) 2.5 3.3 Absolute Monocytes (0.10 - 0.60 /CUMM) 0.6 0.8 H Absolute Eosinophils (0.0 - 0.7 /CUMM) 0.3 0.5 Absolute Basophils (0.0 - 0.2 /CUMM) 0 0.1 ESR Westergren (0 - 10 MM) 20 H Imaging Results: CTA of the head and neck upon admission revealed: 1. No acute intracranial pathology. Specifically, no evidence of intracranial hemorrhage or acute infarction. 2. Atherosclerotic disease of the visualized thoracic aorta and branch vessels. There is approximately 80% stenosis at the origin of the left CCA; however, the remainder of the left CCA and ICA are widely patent. No significant luminal narrowing of the right CCA or right ICA. There is mild stenosis at the origin of the left vertebral artery. The right vertebral artery is widely patent. 3. Small, 0.3 cm noncalcified nodule within the visualized left upper lobe is of uncertain chronicity given absence of comparison exams. Based on updated guidelines from the Fleischner Society for nodules of this size, routine CT follow-up is not required in a low-risk patient and is considered optional at 12 months in a high risk patient. Assessment/Plan Assessment/Plan Patient is a 67-year-old male with multiple medical comorbidities including hypertension, hyperlipidemia, questionable diabetes, hypothyroidism, history of CVA 2 initially caused by intracranial hemorrhage and subsequent craniotomy. He has since experienced seizures, which are being treated with antiseizure medications. Now presents with a recent history of blackouts. 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 Agree that symptoms are more likely due to seizure activity and are not acutely vascular in origin. Pt will require follow up as an outpatient with Vascular Surgery. Please have him call Dr. Uribe's office ) upon discharge to be seen within 1-2 weeks. He should continue ASA 81 mg. Consult Acknowledgment - Thank you for your consult request.
[2017-08-03 09:21] VITALS: BP 116/72
--- NOTE | 2017-08-03 09:38 | PN-Observation ---
Caroline Pereira MD,[facility] 08/03/17 0937: Observation Note Observation Note _ I have personally examined RAMON SARABIA. him disposition is uncertain at this time. Before a determination can be made, he requires continued observation for the following reasons "black out". Assessment/Plan Assessment: Mr. Mcdonald is a 67-year-old male with an extensive history who presents with loss of vision placed under observation in telemetry for further evaluation TIA vs Stroke vs Seizure CTA of the head was done: 1. There are no acute bleeds or territorial infarcts 2. There are multiple lacunar infarcts. A small area of more acute ischemia cannot be excluded on the basis of this study. 2. There are sequelae of a right parietal cranioplasty. CTA of the neck: 1. No acute intracranial pathology. Specifically, no evidence of intracranial hemorrhage or acute infarction. 2. Atherosclerotic disease of the visualized thoracic aorta and branch vessels. There is approximately 80% stenosis at the origin of the left CCA; however, the remainder of the left CCA and ICA are widely patent. No significant luminal narrowing of the right CCA or right ICA. There is mild stenosis at the origin of the left vertebral artery. The right vertebral artery is widely patent. 3. Small, 0.3 cm noncalcified nodule within the visualized left upper lobe is of uncertain chronicity given absence of comparison exams. Based on updated guidelines from the Fleischner Society for nodules of this size, routine CT follow-up is not required in a low-risk patient and is considered optional at 12 months in a high risk patient. Vascular surgery was consulted and didn't recommend any acute intervention. Neurology workup also was consulted. Plan to request for medical records to assess MRI stability. Neurochecks were done, serial troponins and EKGs were requested, echocardiography and EEG were requested. Home medications were continued. Nursing uniform loss in the morning cath patient is requesting to be discharged. Attending Had long discussion regarding necessity of staying in the hospital for continuation of the care and complications of leaving hospital. Patient insisted to be discharged and left AGAINST MEDICAL ADVICE. Diet: Heart healthy DVT ppx: ALPS Patient left hospital AMA. 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 Problem List: 1. TIA (transient ischemic attack) Qualifiers Transient cerebral ischemia type: amaurosis fugax Qualified Code: G45.3 - Amaurosis fugax 2. Seizure 3. Black-out (not amnesia) Plan: as noted above Consulting Request: Consulting Specialty: Neurology Discharge Plan Discharge Disposition: patient left AMA Stable for Discharge? No (left AMA) Anticipated Discharge (Day): today Subjective Follow-up For: Black out TIA/seizure Tele-Events Since Last Visit: SB 48-55 Subjective: Patient visited today, was lying in bed comfortably in no acute distress, was alert and oriented. No fever or chills, no shortness of breathing, no chest pain, no other events. Patient was requesting to be discharged despite attending explained risk of leaving hospital. Patient was discharged with recommendatinos to: Please note that you left AGAINST MEDICAL ADVICE, please note that as we discussed there were still serious medical conditions that needed to be ruled out before safe discharge. Please note you may lose consciousness or have some neurological symptoms that can lead to serious complications such as bleeding into the brain or . Please come back to hospital if you have any symptoms. Please follow with your PCP within one week of discharge. Please follow with your neurologist as you scheduled daily next week. Please do not drive or participate in any other activity that needs full attention until cleared by your neurologist. Review of Systems Constitutional: Reports: see HPI. Objective Last 24 Hrs of Vital Signs/I&O Vital Signs Date Time Temp Pulse Resp B/P B/P Pulse O2 O2 Flow FiO2 Mean Ox Delivery Rate 08/03 0921 69 116/72 08/03 0921 69 116/72 08/03 0921 69 116/72 08/03 0644 98.1 58 18 116/72 97 Room Air 08/03 0028 97.8 56 18 148/76 97 Room Air 08/02 2248 97.7 58 18 131/71 08/02 2246 97.7 58 18 131/71 99 Room Air 08/02 1730 98.1 62 20 120/74 96 Room Air Intake & Output 08/03 1600 08/03 0800 08/03 0000 Intake Total 110 0 Output Total Balance 110 0 Intake, IV 10 Intake, Oral 100 0 Patient 235 lb Weight Weight Reported by Patient Measurement Method Physical Exam General Appearance: Alert, Oriented X3, Cooperative, No Acute Distress Skin: No Significant Lesion Skin Temp/Moisture Exam: Warm/Dry Sepsis Skin Exam (color): Normal for Ethnicity HEENT: Atraumatic, EOMI, Mucous Membr. moist/pink Neck: No JVD Cardiovascular: Regular Rate, Normal S1, Normal S2 Lungs: Clear to Auscultation, Normal Air Movement Neurological: RUE, RLE 5/5 strength, LUE 4/5 strength with loss of coordination and fine motor control. LLE 3/5 strength. Sensation diminished on L-side Extremities: No Edema Current Medications: Current Medications Sig/Esequiel Start time Last Medication Dose Route Stop Time Status Admin Amlodipine Besylate 10 MG DAILY 08/03 1000 DCD 08/03 PO 0921 Aspirin Buffered 81 MG DAILY 08/03 1000 DCD 08/03 PO 0921 Atorvastatin Calcium 20 MG 1700 08/03 1700 DCD PO Levothyroxine Sodium 0.1 MG DAILY AC 08/03 0700 DCD 08/03 PO 0638 Lisinopril 10 MG DAILY 08/03 1000 DCD 08/03 PO 0921 Nicotine 14 MG DAILY 08/03 1000 DCD TOP Nitroglycerin 0.4 MG Q 5 MINUTES X 3 DO.. 08/02 2300 DCD SL Omeprazole 40 MG DAILY AC 08/03 0700 DCD 08/03 PO 0637 Propranolol HCl 10 MG BID 08/03 1000 DCD 08/03 PO 0921 Propranolol HCl 10 MG ONCE ONE 08/02 1914 DC 08/02 PO 08/02 1915 2248 Topiramate 150 MG BID 08/03 1000 DCD 08/03 PO 0921 Topiramate 150 MG ONCE ONE 08/02 191 DC 08/02 PO 08/02 1915 2248 Venlafaxine HCl 150 MG AT BEDTIME 08/03 2200 DCD PO Venlafaxine HCl 150 MG 0800 08/03 0800 DC PO Venlafaxine HCl 150 MG ONCE ONE 08/02 2330 DC 08/03 PO 08/02 2331 0315 Last 24 Hrs of Labs/Mics: Laboratory Tests 08/03/17 0620: Anion Gap 10, Estimated GFR > 60, BUN/Creatinine Ratio 15.6, CBC w Diff NO MAN DIFF REQ, RBC 4.17 L, MCV 94.7 H, MCH 31.9 H, MCHC 33.6, RDW 14.7 H, MPV 8.5 , Gran % 50.3, Lymphocytes % 35.3, Monocytes % 9.0, Eosinophils % 4.8, Basophils % 0.6, Absolute Granulocytes 3.6, Absolute Lymphocytes 2.5, Absolute Monocytes 0.6, Absolute Eosinophils 0.3, Absolute Basophils 0 08/02/171928: Anion Gap 15, Estimated GFR > 60, BUN/Creatinine Ratio 14.0, Glucose 98, Hemoglobin A1c Pending, Calcium 9.9, Total Bilirubin 0.3, AST 20, ALT 37, Alkaline Phosphatase 72, Troponin I < 0.01, Total Protein 7.8, Albumin 4.8, Globulin 3.0, Albumin/Globulin Ratio 1.6, Triglycerides 149, Cholesterol 172, LDL Cholesterol, Calc 79, HDL Cholesterol 64 H, Cholesterol/HDL Ratio 3, TSH 2.570, Free T4 1.35, PT 11.2, INR 1.07, CBC w Diff NO MAN DIFF REQ, RBC 4.54 L, MCV 94.7 H, MCH 31.9 H, MCHC 33.7, RDW 14.8 H, MPV 8.0, Gran % 51.0, Lymphocytes % 35.1, Monocytes % 8.5, Eosinophils % 4.8, Basophils % 0.6, Absolute Granulocytes 4.7, Absolute Lymphocytes 3.3, Absolute Monocytes 0.8 H, Absolute Eosinophils 0.5, Absolute Basophils 0.1, ESR Westergren 20 H Padilla Castanedakarina 08/03/17 1602: Attending MD Review Statement Attending Statement Attending MD Statement: examined this patient, discuss w/resident/PA/GAMBLING BROKER, agreed w/resident/PA/GAMBLING BROKER, discussed with family, reviewed EMR data (avail), discussed w/ nursing Attending Assessment/Plan: I discussed with pt at length the risks associated with leaving AMA ( even )given that he has had ICH in the past and with h/o seizure disorder. Pt says he has appointment with Dr Pérez office on saturday and will f/u with him. I tried convincing him to stay to be seen by Dr Pérez and get EEG. Pt refused and signed out AMA.
--- NOTE | 2017-08-03 11:44 | Patient Discharge Instructions ---
Discharge Instructions General Discharge Information You were seen/treated for: Black outs Rule out TIA/stroke possible partial seizure Watch for these problems: Severe headache, dizziness, weakness, vision change or worsening any other symptoms Special Instructions: Please note that you left AGAINST MEDICAL ADVICE, please note that as we discussed there were still serious medical conditions that needed to be ruled out before safe discharge. Please note you may lose consciousness or have some neurological symptoms that can lead to serious complications such as bleeding into the brain or . Please come back to hospital if you have any symptoms. Please follow with your PCP within one week of discharge. Please follow with your neurologist as you scheduled daily next week. Please do not drive or participate in any other activity that needs full attention until cleared by your neurologist. Diet Continue normal diet: No Recommended Diet: Heart Healthy Activity Full Activity/No Limits: No Activity Self Limited: Yes Acute Coronary Syndrome Inclusion Criteria At DC or during hospital stay patient has or had the following: ACS DIAGNOSIS No Discharge Core Measures Meds if any: Prescribed or Continued at Discharge Meds if any: NOT Prescribed or Continued at Discharge Congestive Heart Failure Inclusion Criteria At DC or during hospital stay patient has or had the following: CHF DIAGNOSIS No Discharge Core Measures Meds if any: Prescribed or Continued at Discharge Meds if any: NOT Prescribed or Continued at Discharge Cerebrovascular accident Inclusion Criteria At DC or during hospital stay patient has or had the following: CVA/TIA Diagnosis No (left AMA, to be ruled out) Discharge Core Measures Meds if any: Prescribed or Continued at Discharge Meds if any: NOT Prescribed or Continued at Discharge Venous thromboembolism Inclusion Criteria VTE Diagnosis No VTE Type NONE VTE Confirmed by (Test) NONE Discharge Core Measures - Per Current guidelines, there needs to be overlap - treatment for the first 5 days of Warfarin therapy. - If discharged on Warfarin prior to 5 days of - overlap therapy, the patient will need to be - assessed for post discharge needs including - *Post discharge parental anticoagulation - *Warfarin and/or parental anticoagulation education - *Follow up date to check INR post discharge At least 5 days overlap therapy as Inpatient No Meds if any: Prescribed or Continued at Discharge Note: Overlap Therapy is Warfarin and Anticoagulant Meds if any: NOT Prescribed or Continued at Discharge
== END 2017-08-03 12:50 | disposition left against medical advice (07) ==
LOC: ERH 15:42 → ERHI 22:35 → 1NO 22:35 → ENRESERV 22:47 → 1NO 08-03 00:16 → ENPENDDIS 08-03 12:47 → 1NO 08-03 12:50
PROVIDERS: Emergency Medicine; Student in an Organized Health Care Education/Training Program
DX: R56.9 Unspecified convulsions (principal); R55 Syncope and collapse; I69.392 Facial weakness following cerebral infarction; I10 Essential (primary) hypertension; I70.90 Unspecified atherosclerosis; F17.200 Nicotine dependence, unspecified, uncomplicated; I71.4 Abdominal aortic aneurysm, without rupture; Z79.82 Long term (current) use of aspirin; E78.5 Hyperlipidemia, unspecified; E03.9 Hypothyroidism, unspecified; I65.22 Occlusion and stenosis of left carotid artery; Z79.899 Other long term (current) drug therapy; I69.351 Hemiplegia and hemiparesis following cerebral infarction affecting right dominant side; I70.0 Atherosclerosis of aorta
CPT/HCPCS: 6020; 82436; 93005; 93010; 96372; G0378